=== PATIENT | male | born 1945 | race Caucasian/White ===

== ENCOUNTER → 2024-06-02 10:57 | Outpatient (REF) | payer MEDICARE, OTHER, SELFPAY | LOC: RCS 10:57 | PROVIDERS: ATTENDING PHYSICIAN Internal Medicine Cardiovascular Disease; FAMILY PHYSICIAN Family Medicine | DX: I25.2 Old myocardial infarction (principal); I25.10 Atherosclerotic heart disease of native coronary artery without angina pectoris | CPT/HCPCS: 93306 ==

== ENCOUNTER 2024-12-05 10:20 | Day surgery (SDC) | payer MEDICARE, OTHER, SELFPAY ==
[2024-12-05] VITALS (15 sets, daily range): BP systolic 117–142; BP diastolic 62–89; BMI 25.8
[2024-12-05 10:57] LABS: Glucose - Point of Care 126 mg/dl (70-99)
--- NOTE | 2024-12-05 13:27 | ITS.CL.CATH ---
Metallurgical Engineer - Catheterization
Cardiac Catheterization
Procedure Report:
CARDIAC CATHETERIZATION REPORT
Date of Procedure: 12/05/2024
Referring: Dontae Craig M.D.
INDICATION: Known coronary artery disease, abnormal stress test.
PROCEDURE:
1. Left heart catheterization
2. Coronary angiography.
A total of 25 minutes of procedural/moderate sedation was utilized. An independent medical radiation tech was present to assist with and help manage the patient's level of consciousness and physiologic status.
ACCESS:
1. 6 [place] right common femoral artery using a modified Seldinger technique with a micropuncture kit under ultrasound guidance. Ultrasound image obtained.
CATHETERS:
1. 5 [place] JR4.
2. 5 [place] JL 4.
HEMODYNAMIC DATA
Weight (kg): 81.2
AO (s/d/x, mmHg): 135/70/97
LV (s/x mmHg): 136/20
LEFT VENTRICULOGRAPHY: Not performed.
CORONARY ANGIOGRAPHY
Dominance: Right.
Left Main: Normal size, trifurcating vessel with a 40% distal narrowing.
LAD: Normal size vessel giving rise to several small diagonals. Patent stents are observed in the proximal LAD as well as the distal to mid vessel. There is no in-stent restenosis.
Ramus: Medium size vessel supplying the anterolateral wall. There is no coronary artery disease.
Circumflex: Small size, vestigial vessel. There is no coronary artery disease.
RCA: Large size, dominant vessel with a large posterolateral arcade that essentially functions as the circumflex. There are luminal irregularities throughout the body of the vessel. A patent stent is visible in the proximal margin of the
posterolateral branch. There is no in-stent restenosis.
INTERVENTION(S)
None.
Closure Device: 6 [place] Angio-Seal.
Radiation (mGy): 341.36
DAP (cm2.Gy): 27.7436
Fluoroscopy time (minutes): 1 point
CONCLUSIONS
1. Right dominant circulation with a large posterolateral arcade that essentially functions as the circumflex, a 40% distal left main tapering, patent stents in the proximal LAD, mid and distal LAD as well as the proximal posterolateral branch.
2. Moderately elevated filling pressures (LVEDP = 20 mmHg at 81.2 kg).
RECOMMENDATIONS:
1. Expectant management after cardiac catheterization via right common approach.
2. Limited weight bearing for one week.
3. Continue aggressive secondary prevention with high-dose, high potency statin. Goal LDL <55.
4. Continue dual antiplatelet therapy for at least 1 year, followed by aspirin indefinitely.
5. Start furosemide 40 mg p.o. daily for elevated filling pressures. BMP in 1 week to monitor renal function and potassium levels.
6. OMT/GDMT as hemodynamics will tolerate.
7. Stable for outpatient follow-up.
Copy to: Dontae Craig M.D., Marbin Adams D.O.
Loc Morgan DO, FACC, FACP
== END 2024-12-05 16:35 | disposition home or self-care (01) ==
LOC: CATH 10:20
PROVIDERS: ATTENDING PHYSICIAN Internal Medicine Cardiovascular Disease; FAMILY PHYSICIAN Family Medicine; OTHER PHYSICIAN Internal Medicine Cardiovascular Disease
DX: I25.10 Atherosclerotic heart disease of native coronary artery without angina pectoris (principal); R94.39 Abnormal result of other cardiovascular function study; Z79.02 Long term (current) use of antithrombotics/antiplatelets; Z79.82 Long term (current) use of aspirin; Z95.5 Presence of coronary angioplasty implant and graft; Z79.899 Other long term (current) drug therapy
CPT/HCPCS: 82962; 93458; 99152; 99153; C1760; C1894; Q9967